=== PATIENT | male | born 1970 | race Caucasian/White ===

== ENCOUNTER 2019-09-24 09:23 | Emergency (ER) | payer MEDICAID ==
[~2019-09-24] VITALS: Ht 180.3 cm; Wt 93.0 kg
[2019-09-24 09:39] VITALS: BP_SYST 135
[2019-09-24 09:55] VITALS: BP_SYST 135
== END 2019-09-24 09:55 | disposition home or self-care (01) ==
LOC: SED 09:23
DX: K13.0 Diseases of lips (principal)
CPT/HCPCS: 99283